=== PATIENT | female | born 1945 | race Caucasian/White ===

== ENCOUNTER 2017-02-23 01:02 | Inpatient (IN) | payer MEDICARE, BC ==
[~2017-02-23] VITALS: Ht 167.6 cm; Wt 47.2 kg
[2017-02-23 04:00] VITALS: BP 98/65
[2017-02-23] MEDS ORDERED: TEMAZEPAM 7.5 MG CAPSULE PO PRN (04:30)
[2017-02-23] MEDS ORDERED: MAGNESIUM HYDROXIDE 30 ML UDC PO PRN (04:30)
[2017-02-23] MEDS ORDERED: LORAZEPAM 0.5 MG TABLET PO PRN (04:30)
[2017-02-23] MEDS ORDERED: MAG HYDROX/AL HYDROX/SIMETH 30 ML UDC PO PRN (04:30)
--- NOTE | 2017-02-23 05:15 | NUR ---
Admission Note: Pt was ROSELYN Boo from [facility] on a 5150 legal hold for being Gravely disable. A/Ox4. On a face to face interview pt reported being exhausted b/c she had been awake most of the night due to her transfer. She refused to sign admission papers & refused initial skin assessment check. She did state that she had "emotional pain". She was reportedly given Trazodone, Seroquel, & Tylenol at [facility] last night. Pt requested to be left alone so she could sleep.
[2017-02-23] MEDS ORDERED: BUSP10TA3 PO (05:42)
[2017-02-23] MEDS ORDERED: FOLI1TAB16 PO (05:42)
[2017-02-23] MEDS ORDERED: TRAZ-147 PO (05:42)
[2017-02-23] MEDS ORDERED: CHOL100040 PO (05:42)
[2017-02-23] MEDS ORDERED: IMAT100T9 PO (05:42)
[2017-02-23] MEDS ORDERED: ESOM20CA PO (05:42)
[2017-02-23] MEDS ORDERED: DOCU-170 PO (05:42)
[2017-02-23] MEDS ORDERED: VIT1TABL85 PO (05:42)
[2017-02-23 08:06] VITALS: BP 116/73
[2017-02-23] MEDS: PANTOPRAZOLE 40 MG TABLET.DR PO SCH (08:33)
[2017-02-23] MEDS: DOCUSATE SODIUM 100 MG CAPSULE PO SCH ×2 (08:34→18:14)
[2017-02-23] MEDS: FOLIC ACID 1 MG TABLET PO SCH (08:34)
[2017-02-23] MEDS: VITAMIN B COMP W-C 1 TAB TABLET PO SCH (08:35)
[2017-02-23] MEDS: CHOLECALCIFEROL 1,000 UNIT TABLET (VIT D3) PO SCH (08:36)
[2017-02-23] MEDS: QUETIAPINE FUMARATE 25 MG TABLET PO SCH ×2 (13:08→18:14)
[2017-02-23 16:00] VITALS: BP 100/69
--- NOTE | 2017-02-23 16:00 | NUR ---
[id number]: PT'S CAME TO VISIT PT OFF VISITING HOURS. EXPLAINED VISITING HOURS TO . PLACED PT'S CONTACT INFORMATION ON THE COMPUTER SYSTEM BY CALLING ADMITTING AND PRINTED NEW FACE SHEETS WITH 'S INFORMATION. PLACED A COPY POWER OF FILM SOUND ENGINEER ON THE CHART. PROVIDED WITH NURSE STATION PHONE NUMBERS AND EXPLANATION OF POLICY AND PROCEDURES. AFTER VISITING FOR 1 1/2 HOURS ADVISE IT WAS TIME TO LEAVE THE UNIT. CHARGE NURSE IS AWARE.
[2017-02-23] MEDS: BOOST PLUS FOOD-CHOCLATE 237 ML BOX PO SCH (17:10)
[2017-02-23] MEDS: busPIRone 5 MG TABLET PO SCH (18:15)
[2017-02-23 19:58] VITALS: BP 107/70
[2017-02-23] MEDS ORDERED: QUETIAPINE FUMARATE 100 MG TABLET PO SCH (20:00)
--- NOTE | 2017-02-23 20:26 | NUR ---
RN GPS NOTES PT. REFUESD SKIN ASSESSMENT, ENCOURAGED FOR SKIN ASSESSMENT,STILL REFUSED / PT. STATED MY SKIN IS CLEAR.
--- NOTE | 2017-02-24 05:48 | NUR ---
RN GPS NOTES PT. REFUESD TO PROVIDE URINE SPECIMEN , ENCOURAGED X3 EXPLAINED RISKS AND BENEFITS STILL REFUSED.
--- NOTE | 2017-02-24 06:59 | NUR ---
RN GPS NOTES PT. REFUESD TO PROVIDE URINE SPECIMEN , ENCOURAGED X3 EXPLAINED RISKS AND BENEFITS STILL REFUSED. ENDORSE TO NEXT SHIFT FOR CONTINUITY OF CARE
--- NOTE | 2017-02-24 08:00 | NUR ---
GPS/RN PATIENT REFUSED VITAL SIGNS X 3, EXPLAINED RISKS AND BENEFITS, CONTINUES TO REFUSE. WILL CONTINUE TO ENCOURAGE TO COMPLY WITH REGIMEN.
[2017-02-24] MEDS: VITAMIN B COMP W-C 1 TAB TABLET PO SCH (08:23)
[2017-02-24] MEDS: FOLIC ACID 1 MG TABLET PO SCH (08:24)
[2017-02-24] MEDS: QUETIAPINE FUMARATE 25 MG TABLET PO SCH ×3 (08:24→17:06)
[2017-02-24] MEDS: PANTOPRAZOLE 40 MG TABLET.DR PO SCH (08:24)
[2017-02-24] MEDS: DOCUSATE SODIUM 100 MG CAPSULE PO SCH ×2 (08:24→17:00)
[2017-02-24] MEDS: CHOLECALCIFEROL 1,000 UNIT TABLET (VIT D3) PO SCH (09:00)
[2017-02-24] MEDS: ACETAMINOPHEN 325 MG TABLET PO PRN ×2 (09:02→19:23)
--- NOTE | 2017-02-24 09:02 | NUR ---
RN GPS NOTES PT. REPORTS HEADACHE , REQUESTED TYLENOL, ADMINISTERED TYLENOL PO ORDERED, PER PATIENT REQUEST. WILL CONTINUE TO MONITOR.
[2017-02-24] MEDS: busPIRone 5 MG TABLET PO SCH ×3 (09:03→17:06)
[2017-02-24] MEDS: BOOST PLUS FOOD-CHOCLATE 237 ML BOX PO SCH ×3 (09:27→17:51)
--- NOTE | 2017-02-24 10:30 | NUR ---
GPS/RN PATIENT REFUSED SKIN ASSESSMENT X 3, STATED" LEAVE ME ALONE" EXPLAINED RISKS AND BENEFITS, WILL CONTINUE TO ENCOURAGE TO ALLOW STAFF TO ASSESS SKIN INTEGRITY.
--- NOTE | 2017-02-24 11:54 | NUR ---
GPS/RN PATIENT REFUSED MRSA SWAB X 3, EXPLAINED RISKS AND BENEFITS, CONTINUES TO REFUSE. WILL CONTINUE TO ENCOURAGE TO COMPLY WITH REGIMEN AND TREATMENTS.
--- NOTE | 2017-02-24 11:57 | NUR ---
GPS/RN PATIENT REFUSED TO PROVIDE URINE SPECIMEN X 3, EXPLAINED RISKS AND BENEFITS, CONTINUES TO REFUSE. WILL CONTINUE TO ENCOURAGE TO COMPLY WITH REGIMEN AND TREATMENTS.
[2017-02-24] MEDS ORDERED: QUETIAPINE FUMARATE 25 MG TABLET PO SCH (13:00)
[2017-02-24] MEDS ORDERED: QUETIAPINE FUMARATE 25 MG TABLET PO ONE (13:00)
[2017-02-24 16:00] VITALS: BP 121/78
[2017-02-24] MEDS: QUETIAPINE FUMARATE 100 MG TABLET PO SCH (20:35)
[2017-02-24 20:46] VITALS: BP 97/69
--- NOTE | 2017-02-25 06:33 | NUR ---
GPS/RN PATIENT REFUSED TO PROVIDE URINE SPECIMEN X 3, EXPLAINED RISKS AND BENEFITS, CONTINUES TO REFUSE. WILL CONTINUE TO ENCOURAGE TO COMPLY WITH REGIMEN AND TREATMENTS.
--- NOTE | 2017-02-25 06:34 | NUR ---
GPS/RN PATIENT REFUSED TO PROVIDE URINE SPECIMEN X 3, EXPLAINED RISKS AND BENEFITS, CONTINUES TO REFUSE. WILL CONTINUE TO ENCOURAGE TO COMPLY WITH MD REGIMEN .
[2017-02-25] MEDS: PANTOPRAZOLE 40 MG TABLET.DR PO SCH (07:30)
--- NOTE | 2017-02-25 08:00 | NUR ---
GPS/RN PATIENT REFUSED VITALS X3, BY RN AND RN ENDOCRINOLOGY, EXPLAINED RISKS AND BENEFITS, RN BROUGHT IN SMALL CUFF REQUESTED BY PATIENT BUT SHE CONTINUES TO REFUSE. WILL CONTINUE TO ENCOURAGE TO COMPLY WITH REGIMEN.
[2017-02-25] MEDS: BOOST PLUS FOOD-CHOCLATE 237 ML BOX PO SCH ×3 (09:00→17:00)
[2017-02-25] MEDS: QUETIAPINE FUMARATE 25 MG TABLET PO SCH ×3 (09:00→17:00)
[2017-02-25] MEDS: busPIRone 5 MG TABLET PO SCH ×3 (09:00→17:00)
[2017-02-25] MEDS: FOLIC ACID 1 MG TABLET PO SCH (09:00)
[2017-02-25] MEDS: DOCUSATE SODIUM 100 MG CAPSULE PO SCH ×2 (09:00→17:00)
[2017-02-25] MEDS: CHOLECALCIFEROL 1,000 UNIT TABLET (VIT D3) PO SCH (09:00)
[2017-02-25] MEDS: VITAMIN B COMP W-C 1 TAB TABLET PO SCH (09:00)
--- NOTE | 2017-02-25 09:00 | NUR ---
GPS/RN PATIENT REFUSED A.M. MEDICATION X 3, EXPLAINED RISKS AND BENEFITS, STATED, IM NOT TAKING ANY MEDICATION BECAUSE THERE ARE NO REAL DOCTOR;S HERE". WILL CONTINUE TO ENCOURAGE TO COMPLY WITH MD REGIMEN.
--- NOTE | 2017-02-25 09:14 | NUR ---
RN-CO: Patient refused lab works, encouraged her several times but firmly refused. We explained the risks and benefits but still refused.
--- NOTE | 2017-02-25 13:00 | NUR ---
GPS/RN PATIENT REFUSED ALL 1300 MEDICATION X 3, EXPLAINED RISKS AND BENEFITS, WILL CONTINUE TO ENCOURAGE TO COMPLY WITH MD REGIMEN.
--- NOTE | 2017-02-25 14:01 | NUR ---
hoe worker received a call from patient's Shola Murphy who stated that he wanted her to be discharged and he wanted to take her to [facility]. ([phone]) as he stated they have a bed available. hoe worker will follow-up.
--- NOTE | 2017-02-25 14:05 | NUR ---
extrusion utility worker spoke to Annabel from [facility] ([phone]) who stated that she informed Shola that the only way patient can be admitted is if she is discharged from [facility] and taken to the [facility] ER which she would have to be reevaluated. Per Annabel, there was no guarantee patient would be admitted.
--- NOTE | 2017-02-25 14:11 | NUR ---
loft worker apprentice informed assigned psychiatrist Dr. León. Per Dr. León, she will not discharge today and will follow-up with patient's .
--- NOTE | 2017-02-25 14:13 | NUR ---
construction pit worker spoke to patient's Shola Murphy and informed him that assigned psychiatrist Dr. León would not be discharging patient today. Patient's was unhappy and stated that he would like to speak to Dr. León. construction pit worker will follow-up.
--- NOTE | 2017-02-25 15:31 | NUR ---
GPS/RN PATIENT'S IS ON UNIT, PATIENT IS EXTREMELY AGITATED, GRABBING BADGE OF CHARGE NURSE, ASKING "WHAT IS YOUR POSITION" GRABBING AND PINCHING AND BEING VERBALLY ABUSIVE WITH STAFF. STATED" THIS IS A CRAPPY PLACE, I WANT TO TAKE MY TO A PROPER PLACE.
--- NOTE | 2017-02-25 17:00 | NUR ---
GPS/RN PATIENT REFUSED ALL 1700 MEDICATION X 3, STATED "IM NOT TAKING ANY MEDICATION" EXPLAINED RISKS AND BENEFITS, CONTINUES TO REFUSE, WILL CONTINUE TO ENCOURAGE TO COMPLY WITH MD REGIMEN.
--- NOTE | 2017-02-25 17:38 | NUR ---
GPS/RN PATIENT REFUSED ALL MEALS DURING SHIFT,EXPLAINED RISKS AND BENEFITS, WILL CONTINUE TO ENCOURAGE TO CONSUME ADEQUATE AMOUNTS AT MEALTIME AND ENCOURAGED SNACKS IN BETWEEN.
--- NOTE | 2017-02-25 18:35 | NUR ---
GPS/RN PATIENT REFUSED TO PROVIDE INFORMATION REGRADING OUTPUT DURING SHIFT.
[2017-02-25] MEDS: QUETIAPINE FUMARATE 100 MG TABLET PO SCH (20:00)
--- NOTE | 2017-02-25 20:29 | NUR ---
PATIENT REFUSED VITALS SIGNS, REFUSED SEROQUEL, EXPLAINED BENEFITS OF MEDICATION. PATIENT STILL REFUSED. PATIENT IN BED. PATIENT WANTS TO BE LEFT ALONE. WILL CONTINUE TO MONITOR.
[2017-02-26] MEDS: PANTOPRAZOLE 40 MG TABLET.DR PO SCH (07:30)
--- NOTE | 2017-02-26 07:30 | NUR ---
COMMUNITY RELATIONS POLICE LIEUTENANT-NOTES - PATIENT REFUSED PROTONIX,DESPITE EXPLANATIONS OF RISK AND BENEFITS.PATIENT IS VERY MANIPULATIVE AND ARGUMENTATIVE. OFFERED X3.
[2017-02-26] MEDS: QUETIAPINE FUMARATE 25 MG TABLET PO SCH ×3 (09:00→17:00)
[2017-02-26] MEDS: DOCUSATE SODIUM 100 MG CAPSULE PO SCH ×2 (09:00→17:00)
[2017-02-26] MEDS: busPIRone 5 MG TABLET PO SCH ×3 (09:00→17:00)
[2017-02-26] MEDS: BOOST PLUS FOOD-CHOCLATE 237 ML BOX PO SCH ×3 (09:00→17:00)
[2017-02-26] MEDS: CHOLECALCIFEROL 1,000 UNIT TABLET (VIT D3) PO SCH (09:00)
[2017-02-26] MEDS: FOLIC ACID 1 MG TABLET PO SCH (09:00)
[2017-02-26] MEDS: VITAMIN B COMP W-C 1 TAB TABLET PO SCH (09:00)
--- NOTE | 2017-02-26 10:09 | NUR ---
TELEPHONE SOLICITOR-NOTES PATIENT REFUSED ALL 0900AM MEDICATIONS DESPITE EXPLANATION OF RISK AND BENEFITS. PATIENT STATED " I DON'T TRUST NURSES HERE TO GIVE MEDICATIONS".OFFERED X3.
--- NOTE | 2017-02-26 11:19 | NUR ---
Initial Discharge Plan: Patient resides [place] [address] [place] [address]. Pts family is unable to care for her and her has attempted hiring in-home aids. SW consultant intern spoke with the patients Shola and completed psycho social questions as pt. refused to answer them. SW consultant intern advised to follow up with assigned social work faculty member Millie regarding any questions or concerns. SW to communicate with regarding most appropriate discharge plan. SW to help form a safe and proper discharge.
--- NOTE | 2017-02-26 11:42 | NUR ---
LABEL STITCHER-NOTES PATIENT REFUSED LAB DRAW AND REFUSED TO GIVE URINE SPECIMEN.EXPLAINED RISK AND BENEFITS BUT PATIENT GETS ARGUMENTATIVE AND ANGRY. ATTEMPTED X3
--- NOTE | 2017-02-26 13:46 | NUR ---
PLYWOOD AND VENEER REPAIRER-NOTES PATIENT REFUSED ALL 1300 PM MEDICATIONS DESPITE EXPLANATION OF RISK AND BENEFITS. OFFERED X3.
[2017-02-26 16:55] VITALS: BP 125/81
--- NOTE | 2017-02-26 17:19 | NUR ---
PERSONAL CARE AIDE-NOTES PATIENT STILL REFUSING ALL 1700 PM MEDICATIONS DESPITE EXPLANATION OF RISK AND BENEFITS. OFFERED X3. DR. CORONEL AND DR. JOHNSON AWARE
--- NOTE | 2017-02-26 18:30 | NUR ---
AUXILIARY EQUIPMENT OPERATOR-NOTES RECEIVED T.O ORDER FROM DR. ELIZABETH VANG TO DISCHARGE PATIENT IN THE MEDICAL FLOOR FOR FURTHER TREATMENT WITH ORDERS OF D5 NS 1L X1 AND ROCEPHIN 1GM DAILY X7 DAYS.NOTED AND CARRIED OUT. ENDORSE TO SILVINO CAPPS FOR THE DISCHARGE PROCESS.
--- NOTE | 2017-02-26 18:57 | NUR ---
RN-CO: DR León ordered to discharge patient to medical floor (room 200) for further evaluation. Patient has been refusing her medications , treatments, laboratory works and each meals. She refused to eat in the unit. Dr. León communicated with Dr Nat Ivey regarding the situation, and they agreed to discharge patient to medical floor for hydration and further evaluation. Dante Durand () was notified of the transfer and agreed. RN display fabrication supervisor gave the room number. Endorsed to next shift.
--- NOTE | 2017-02-26 19:30 | NUR ---
GPS RN NOTE, RECEIVED PATIENT AWAKE AND IN BED, NO S/S OR COMPLAINTS OF PAIN AT THIS TIME. PATIENT IS DISPLAYING NO S/S OF APPARENT DISTRESS AT THIS TIME. PATIENT BREATHING IS UNLABORED WITH EQUAL RISE AND FALL OF THE CHEST. PATIENT HAS A ONE TO ONE SITTER FOR FALL. PATIENT IS ALERT AND ORIENTED X 3 ON ROOM AIR WITH A SPO2 OF 95%. PATIENT IS AMBULATORY WITH ASSISTANCE, COMPLIANT MEDICATION, CONFUSED, DISORGANIZED, AND NEEDS REORIENTATION. PATIENT DENIES SUICIDE IDEATIONS AND HOMICIDAL IDEATIONS AT THIS TIME. PATIENT EDUCATED ON THE USE OF THE CALL MOORE. PATIENT BED SIDE RAILS UP X2 FOR SAFETY, BED IS LOCKED AND LOW, AND I WILL CONTINUE TO MONITOR AND MAINTAIN SAFETY Q15MIN WITH THE HELP OF STAFF.
[2017-02-26 20:13] VITALS: BP 124/48
[2017-02-26] MEDS: QUETIAPINE FUMARATE 100 MG TABLET PO SCH (20:56)
--- NOTE | 2017-02-26 21:01 | NUR ---
GPS RN NOTE, PATIENT HAS A COMPLAINT OF NOT BEING ABLE TO SLEEP AND IS REQUESTING RESTORIL. PATIENT VITAL SIGNS ARE STABLE. GAVE RESTORIL 7.5 MG PO HS ORDERED. WILL REASSESS FOR INSOMNIA AND I WILL CONTINUE TO MONITOR THIS PATIENT.
--- NOTE | 2017-02-26 21:15 | NUR ---
GPS RN NOTE, WITH NEW ORDER TO TRANSFER PATIENT TO ROOM MED SURG 2 FOR DEHYDRATION. PSYCHIATRIST MADE AWARE AND ORDERED TO CONTINUE MEDS AND HOLD. PSYCHIATRIST AGREES WITH TRANSFER. PATIENT IS STABLE FOR TRANSFER AND HAS A ONE TO ONE SITTER THAT WILL BE GOING WITH HER. PATIENT REFUSED SKIN ASSESSMENT. PATIENT UNABLE TO SIGN PAPERWORK ALTHOUGH WITNESS/COSIGNER WAS PRESENT. PATIENT BELONGING LEFT WITH PATIENT. MEDICATIONS WERE RECONCILED WITH PSYCH AND MEDICAL MDS. PATIENT TRANSFERRED TO ROOM 200 IN A WHEEL CHAIR WITH SITTER PRESENT. REPORT GIVEN TO ED IN MED/SURG 2 FOR CONTINUATION OF CARE.
== END 2017-02-26 21:21 | disposition short-term general hospital (02) | DRG 885 ==
LOC: GPS 03:26
PROVIDERS: ADMIT Psychiatry & Neurology Psychosomatic Medicine; ATTEND Nurse Practitioner Acute Care
DX: F33.3 Major depressive disorder, recurrent, severe with psychotic symptoms (principal); G93.40 Encephalopathy, unspecified; F03.90 Unspecified dementia, unspecified severity, without behavioral disturbance, psychotic disturbance, mood disturbance, and anxiety; N39.0 Urinary tract infection, site not specified; F23 Brief psychotic disorder; F41.9 Anxiety disorder, unspecified; I10 Essential (primary) hypertension; I25.10 Atherosclerotic heart disease of native coronary artery without angina pectoris; Z79.899 Other long term (current) drug therapy; Z73.6 Limitation of activities due to disability

== ENCOUNTER 2017-02-26 21:49 | Inpatient (IN) | payer MEDICARE, BC ==
[~2017-02-26] VITALS: Ht 167.6 cm; Wt 47.2 kg
[~2017-02-26 21:49] MED LIST: CHOL100040 PO; DOCU-170 PO; ESOM20CA PO; FOLI1TAB16 PO; VIT1TABL85 PO
[2017-02-26 22:00] VITALS: BP 76/56
--- NOTE | 2017-02-26 22:00 | NUR ---
ADMITTING NOTES PATIENT WAS DISCHARGE FROM GPS AND ADMITTED TO THE FLOOR FOR DEHYDRATION. PATIENT IS ALERT AND ORIENTED X3. NO S/S OF SOB OR ANY DISCOMFORT NOTED. PATIENT IS REFUSING FULL SKIN BODY ASSESSMENT. SITTER AT BEDSIDE. WILL CONTINUE TO MONITOR PATIENT.
[2017-02-26] MEDS ORDERED: IV D5/0.45 NACL 1,000 ML IV ONE (22:30)
[2017-02-26 23:00] VITALS: BP 96/54
[2017-02-26] MEDS ORDERED: TEMAZEPAM 7.5 MG CAPSULE PO PRN (23:00)
[2017-02-26] MEDS ORDERED: MAG HYDROX/AL HYDROX/SIMETH 30 ML UDC PO PRN (23:30)
[2017-02-26] MEDS ORDERED: MAGNESIUM HYDROXIDE 30 ML UDC PO PRN (23:30)
[2017-02-26] MEDS ORDERED: ACETAMINOPHEN 325 MG TABLET PO PRN (23:30)
[2017-02-27] MEDS ORDERED: Z GUARD REMEDY 2 OZ OINT TP PRN (02:00)
[2017-02-27] MEDS ORDERED: ZOLPIDEM TARTRATE 5 MG TABLET PO PRN (02:00)
[2017-02-27] MEDS ORDERED: ONDANSETRON HCL/PF 4 MG/2 ML VIAL IVP PRN (02:00)
[2017-02-27] MEDS ORDERED: HYDROCODONE/APAP 5/325MG 1 EACH TABLET PO PRN (02:00)
[2017-02-27] MEDS ORDERED: MAGNESIUM HYDROXIDE 30 ML UDC PO PRN (02:00)
[2017-02-27] MEDS ORDERED: ACETAMINOPHEN 325 MG TABLET PO PRN (02:00)
[2017-02-27 02:45] LABS: BASOPHILS % (AUTO) 0.2 % (0.0-2.0); EOSINOPHILS % (AUTO) 0.6 % (0.0-6.0); HEMATOCRIT 34 % (33-45); HEMOGLOBIN 11.5 g/dL (11.5-14.8); LYMPHOCYTES # (AUTO) 1.3 /CMM (0.8-4.8); LYMPHOCYTES % (AUTO) 22.9 % (20.0-44.0); MEAN CORPUSCULAR HEMOGLOBIN 32 PG (26.0-33.0); MEAN CORPUSCULAR HGB CONC 34 g/dl (31.0-36.0); MEAN CORPUSCULAR VOLUME 94 fL (82-100); MONOCYTES # (AUTO) 0.5 /CMM (0.1-1.30); MONOCYTES % (AUTO) 8.4 % (2.0-12.0); NEUTROPHILS # (AUTO) 3.8 /CMM (1.8-8.9); NEUTROPHILS % (AUTO) 67.9 % (43.0-81.0); PLATELET COUNT (AUTO) 224 /CMM (150-450); RDW COEFFICIENT OF VARIATION 13.7 (11.5-15.0); RED BLOOD CELL COUNT(AUTO) 3.64 MIL/uL (4.0-5.2); WHITE BLOOD COUNT (AUTO) 5.6 K/uL (4.3-11.0)
[2017-02-27 02:49] LABS: ALANINE AMINOTRANSFERASE 24 U/L (12-78); ALBUMIN 3.4 g/dL (3.4-5.0); ALKALINE PHOSPHATASE 47 U/L (46-116); ASPARTATE AMINOTRANSFERASE 23 U/L (15-37); BILIRUBIN,TOTAL 0.3 mg/dL (0.2-1.0); CALCIUM, SERUM 8.5 mg/dL (8.5-10.1); CARBON DIOXIDE 33 mmol/L (21-32); CHLORIDE 100 mmol/L (98-107); CREATININE 0.9 mg/dL (0.6-1.3); GLUCOSE 122 mg/dL (74-106); MAGNESIUM 1.9 mg/dL (1.8-2.4); PHOSPHORUS 3.7 mg/dL (2.5-4.9); POTASSIUM 4.2 mmol/L (3.5-5.1); SODIUM SERUM 135 mmol/L (136-145); TOTAL PROTEIN, SERUM 5.7 g/dL (6.4-8.2); UREA NITROGEN, BLOOD 25 mg/dL (7-18)
[2017-02-27] MEDS ORDERED: MAG HYDROX/AL HYDROX/SIMETH 30 ML UDC ONE (06:15)
[2017-02-27] MEDS: MAG HYDROX/AL HYDROX/SIMETH 30 ML UDC PO PRN (06:20)
[2017-02-27 06:24] VITALS: BP 124/75
[2017-02-27] MEDS: PANTOPRAZOLE 40 MG TABLET.DR PO SCH (07:53)
[2017-02-27 08:00] VITALS: BP 123/71
--- NOTE | 2017-02-27 08:00 | NUR ---
MS 2 RN AM NOTES RECEIVED PATIENT ALERT AND ORIENTED X3. NO S/S OF SOB OR ANY DISCOMFORT NOTED. PATIENT REFUSED FULL SKIN BODY ASSESSMENT INSPITE OF EXPLANATION. SITTER AT BEDSIDE. WILL CONTINUE TO MONITOR PATIENT.
[2017-02-27] MEDS: VITAMIN B COMP W-C 1 TAB TABLET PO SCH (08:38)
[2017-02-27] MEDS: DOCUSATE SODIUM 100 MG CAPSULE PO SCH ×2 (08:38→16:56)
[2017-02-27] MEDS: QUETIAPINE FUMARATE 25 MG TABLET PO SCH ×3 (08:39→16:56)
[2017-02-27] MEDS: busPIRone 5 MG TABLET PO SCH ×3 (08:39→16:56)
[2017-02-27] MEDS: FOLIC ACID 1 MG TABLET PO SCH (08:39)
[2017-02-27] MEDS: CHOLECALCIFEROL 1,000 UNIT TABLET (VIT D3) PO SCH (08:44)
[2017-02-27] MEDS: LORAZEPAM 0.5 MG TABLET PO PRN (08:47)
[2017-02-27] MEDS ORDERED: CALCIUM CARB PO SCH (09:00)
[2017-02-27] MEDS ORDERED: [UNRECOGNIZED DRUG - OTHER] PO SCH (09:00)
[2017-02-27] MEDS ORDERED: FOLIC ACID 1 MG TABLET PO SCH (09:00)
[2017-02-27] MEDS ORDERED: VIT B COMP PO SCH (09:00)
[2017-02-27] MEDS ORDERED: CHOLECALCIFEROL 1,000 UNIT TABLET (VIT D3) PO SCH (09:00)
[2017-02-27] MEDS ORDERED: DOCUSATE SODIUM 100 MG CAPSULE PO SCH (09:00)
--- NOTE | 2017-02-27 09:00 | NUR ---
PT TOOK ALL HER P.O. ONE BY ONE.ATE 25% BREAKFAST.ENCOURAGED INCREASE ORAL INTAKE.PT VERBALIZED UNDERSTANDING OF INSTRUCTIONS.PT VERBALIZED THAT SHE HAD GASTRECTOMY AND CAN'T TAKE LARGE AMOUNT OF FOOD AND LIQUIDS.WILL CONTINUE TO MONITOR.WITH 1;1 SITTER AT BEDSIDE.
[2017-02-27] MEDS: BOOST PLUS FOOD-CHOCLATE 237 ML BOX PO SCH ×3 (09:19→16:56)
[2017-02-27] MEDS: CEFTRIAXONE 1 G in IV D5W 50 ML IV SCH (09:20)
--- NOTE | 2017-02-27 10:00 | NUR ---
BODY CHECK DONE WITH SKIN INTACT.
--- NOTE | 2017-02-27 11:52 | NUR ---
HEARING PROCEDURE COMPLETED WITH A ENGINEERING AIDE AND PT REQUESTED SECOND HEARING FOR FRIDAY.
[2017-02-27] MEDS: IV D5/0.45 NACL 1,000 ML IV PRN (15:34)
[2017-02-27 16:00] VITALS: BP 90/58
--- NOTE | 2017-02-27 16:59 | NUR ---
PT SLEEPING COMFORTABLY BUT AROUSABLE.PT REFUSED BOOST QUESTIONING IT'S SODIUM CONTENT.DENIES ANY DISCOMFORT.COMPLIANT WITH MEDS AND TX.ENCOURAGED FLUIDS AND FOOD INTAKE.PT KEEPS VERBALIZING THAT SHE HAD GASTRECTOMY PROCEDURE DONE WHICH MAKES HER EAT LESS FOOD INTAKE.
--- NOTE | 2017-02-27 19:30 | NUR ---
MS RN NOTES RECEIVED ON BED ON HIGH FOWLERS POSITION,BREATHING NORMAL,IVF INFUSING VIA IV PUMP.SITE PATENT ON RIGHT FOREARM.ON 5150 HOLD,SITTER AT BEDSIDE.CALL LIGHT IN REACH,NEEDS ANTICIPATED.
[2017-02-27 20:00] VITALS: BP 96/67
--- NOTE | 2017-02-27 20:00 | NUR ---
Patient was in [facility] unit on 72hr hold with hx of psychosis and severe depression and transferred to acute medical unit due to dehydration, poor intake.Patient resides with her Shola at [id number] [place] [id number] Her pcp is Dr Tiffanie Louis [phone].PT eval pending. Plan to dc back to [facility] once medically cleared. Addendum: 02/27/17 at 2000 by LONG CONTE RN Amended: Links added.
[2017-02-27 20:17] VITALS: BP 96/67
--- NOTE | 2017-02-27 21:44 | NUR ---
MS RN NOTES C/O INSOMNIA,RESTORIL 7.5MG PO GIVEN PER PATIENT REQUEST
[2017-02-27] MEDS ORDERED: QUETIAPINE FUMARATE 100 MG TABLET PO SCH (22:00)
--- NOTE | 2017-02-28 | NUR ---
MS RN NOTES SLEEPING AT THIS TIME,SITTER AT BEDSIDE
[2017-02-28] MEDS: IV D5/0.45 NACL 1,000 ML IV PRN ×2 (06:13→18:05)
--- NOTE | 2017-02-28 06:18 | NUR ---
MS RN NOTES SLEPT 7 HOURS AT NIGHT WITH PHARMACOLOGICAL INTERVENTION.IVF IN PROGRESS.BRP FOR B/B.SITTER AT BEDSIDE.WILL ENDORSE TO DAY NURSE FOR TIFFANIE.
[2017-02-28 08:00] VITALS: BP 125/75
--- NOTE | 2017-02-28 08:00 | NUR ---
MS 2 RN AM NOTES RECEIVED PATIENT ALERT,MANIPULATIVE AND CONFUSED. NO S/S OF SOB OR ANY DISCOMFORT NOTED.PT IS SO RESTLESS AND ANXIOUS.ATIVAN 0.5 MG PO GIVEN.PT IS QUESTIONING HER IVF SAYING SHE WANTS 1/2 BAG OF D5 1/2 NS 1 LITER.EXPLAINED THE REASON WHY SHE HAS IVF FOR HYDRATION DUE TO HER DEHYDRATION DX AND THAT SHE NEEDS TO DRINK LOTS OF FLUID AND INCREASE HER ORAL INTAKE FOR THE IVF TO BE DISCONTINUED.ALSO EXPLAINED HER ANTIBIOTIC IV FOR HER UTI.PT DENIES HAVING UTI.EXPLAINED THE BENEFITS,RISKS AND CONSEQUENCES IF SHE REFUSED ALL THE MEDS AND TX.PT VERBALIZED THAT SHE HAS GASTRECTOMY DONE WHICH IS THE REASON WHY SHE CAN'T INCREASE HER INTAKE.PT REFUSED HER BOOST QUESTIONING ITS HIGH SODIUM CONTENT.SITTER AT BEDSIDE. WILL CONTINUE TO MONITOR PATIENT.
--- NOTE | 2017-02-28 08:10 | NUR ---
PT REFUSED BLOOD DRAW FOR AM LAB TESTS INSPITE OF EXPLAINING ITS IMPORTANCE AND CONSEQUENCES.
--- NOTE | 2017-02-28 08:30 | NUR ---
PT WALKED WITH SITTER IN THE HALLWAY-PACING AND RESTLESS.ASKED FOR THE PT'S RIGHTS LIST WHICH WAS PROVIDED BY THE COMPLIANCE MGR.
[2017-02-28] MEDS: DOCUSATE SODIUM 100 MG CAPSULE PO SCH ×2 (08:42→16:59)
[2017-02-28] MEDS: QUETIAPINE FUMARATE 25 MG TABLET PO SCH ×3 (08:42→16:59)
[2017-02-28] MEDS: LORAZEPAM 0.5 MG TABLET PO PRN ×2 (08:42→22:03)
[2017-02-28] MEDS: VITAMIN B COMP W-C 1 TAB TABLET PO SCH (08:42)
[2017-02-28] MEDS: FOLIC ACID 1 MG TABLET PO SCH (08:42)
[2017-02-28] MEDS: busPIRone 5 MG TABLET PO SCH ×3 (08:42→16:58)
[2017-02-28] MEDS: PANTOPRAZOLE 40 MG TABLET.DR PO SCH (08:42)
[2017-02-28] MEDS: CEFTRIAXONE 1 G in IV D5W 50 ML IV SCH (08:43)
[2017-02-28] MEDS: BOOST PLUS FOOD-CHOCLATE 237 ML BOX PO SCH ×3 (08:43→17:02)
[2017-02-28] MEDS: CHOLECALCIFEROL 1,000 UNIT TABLET (VIT D3) PO SCH (08:45)
--- NOTE | 2017-02-28 12:06 | NUR ---
harvest worker fruit attempted to contact patient's Shola to inform him of patient's Writ of habeas corpus hearing scheduled fro 03/03/17, he was unavailable. harvest worker fruit left him a detailed voicemail with contact information.
[2017-02-28] MEDS ORDERED: QUETIAPINE FUMARATE 25 MG TABLET PO PRN (15:30)
--- NOTE | 2017-02-28 15:31 | NUR ---
DR CORONEL CALLED SAYING THE /50 HOLD WILL BE DC'D AFTER CHECKING THE PT.WILL CONTINUE 1:1 SITTER DUE TO PT'S RESTLESSNESS.
[2017-02-28 16:00] VITALS: BP 100/70
--- NOTE | 2017-02-28 18:48 | NUR ---
PT SLEEPING COMFORTABLY BUT AROUSABLE REFUSING DINNER.DENIES PAIN OR DISTRESS.1:1 SITTER AT BEDSIDE.
[2017-02-28 20:00] VITALS: BP_SYST 103; BP_SYST 93; BP_DIAS 69; BP_DIAS 71
--- NOTE | 2017-02-28 20:00 | NUR ---
RN NOTES RECEIVED PATIENT IN BED, ASLEEP, RESPIRATION EVEN AND UNLABORED, NO DISTRESS, TOLERATING ROOM AIR, SPO2 97%, RIGHT AC PERIPHERAL LINE IS PATENT AND INFUSING WELL WITH D51/2 NS AT 75 CC/HR. PER ENDORSEMENT, HAS POOR APPETITE. SAFETY PRECAUTIONS, PATIENT AMBULATORY, SITTER AT THE BEDSIDE. CALL LIGHT WITHIN REACH
--- NOTE | 2017-02-28 21:25 | NUR ---
RN NOTES PATIENT AWAKE AND ALERT, NO SOB, NO DISTRESS, ASKING FOR PM MEDICATIONS, EXPLAINED TO PATIENT SCHEDULED MEDICATIONS AT NIGHT, WITH FORGETFULNESS. AFTER 15 MINUTES, ASKING ANOTHER NURSE REGARDING PM MEDICATIONS. ATE LATE DINNER OF 75%, ASKED FOR EGG SANDWICH. EXCESSIVE TALKING NOTED. AMBULATES IN THE HALLWAY WITH SITTER. KEPT SAFE AND COMFORTABLE, CALL LIGHT WITHIN REACH.
[2017-02-28] MEDS: QUETIAPINE FUMARATE 100 MG TABLET PO SCH (22:03)
--- NOTE | 2017-03-01 02:54 | NUR ---
RN NOTES PATIENT ASLEEP, GIVEN ATIVAN FOR RESTLESSNESS, ATIVAN EFFECTIVE, SITTER AT THE BEDSIDE. WILL CONTINUE TO MONITOR.
[2017-03-01] MEDS: IV D5/0.45 NACL 1,000 ML IV PRN (05:29)
[2017-03-01 06:28] LABS: BASOPHILS % (AUTO) 0.4 % (0.0-2.0); EOSINOPHILS # (AUTO) 0.1 /CMM (0.0-0.7); EOSINOPHILS % (AUTO) 2.9 % (0.0-6.0); HEMATOCRIT 34 % (33-45); HEMOGLOBIN 11.4 g/dL (11.5-14.8); LYMPHOCYTES # (AUTO) 1.4 /CMM (0.8-4.8); LYMPHOCYTES % (AUTO) 29.2 % (20.0-44.0); MEAN CORPUSCULAR HEMOGLOBIN 32 PG (26.0-33.0); MEAN CORPUSCULAR HGB CONC 34 g/dl (31.0-36.0); MEAN CORPUSCULAR VOLUME 95 fL (82-100); MONOCYTES # (AUTO) 0.4 /CMM (0.1-1.30); MONOCYTES % (AUTO) 9.4 % (2.0-12.0); NEUTROPHILS # (AUTO) 2.7 /CMM (1.8-8.9); NEUTROPHILS % (AUTO) 58.1 % (43.0-81.0); PLATELET COUNT (AUTO) 171 /CMM (150-450); RDW COEFFICIENT OF VARIATION 13.7 (11.5-15.0); RED BLOOD CELL COUNT(AUTO) 3.57 MIL/uL (4.0-5.2); WHITE BLOOD COUNT (AUTO) 4.6 K/uL (4.3-11.0)
[2017-03-01 06:35] LABS: CALCIUM, SERUM 7.9 mg/dL (8.5-10.1); CARBON DIOXIDE 31 mmol/L (21-32); CHLORIDE 104 mmol/L (98-107); CREATININE 0.7 mg/dL (0.6-1.3); GLUCOSE 88 mg/dL (74-106); POTASSIUM 3.8 mmol/L (3.5-5.1); SODIUM SERUM 139 mmol/L (136-145); UREA NITROGEN, BLOOD 14 mg/dL (7-18)
--- NOTE | 2017-03-01 06:40 | NUR ---
RN NOTES PATIENT RESTING COMFORTABLY IN BED, ALERT AND AWAKE, NO SOB, NO DISTRESS, DENIES ANY PAIN AT THIS TIME, RIGHT AC PERIPHERAL LINE IS PATENT AND INFUSING WELL, SLEPT FOR 7 HOURS, COOPERATIVE WITH MEDICATIONS, WITH EPISODE OF AGITATION AT TIMES. AGREED TO BLOOD DRAW WITH ENCOURAGEMENT. ONE ON ONE SITTER AT THE BEDSIDE.CALL LIGHT WITHIN REACH.
--- NOTE | 2017-03-01 07:30 | NUR ---
MS RN AM NOTES PATIENT STANDING UP, ALERT AND AWAKE, CALM, COOPERATIVE, WITH SITTER, ON RA, NO SOB, NO DISTRESS, DENIES ANY PAIN AT THIS TIME, RIGHT AC PERIPHERAL LINE IS PATENT WITH D51/2 NS INFUSING WELL, WITH TENDENCY TO GET EASILY FRUSTRATED AND AGITATED AT TIMES WHEN ENGAGED IN A CONVERSATION. AMBULATES. ON REGULAR DIET. CALL LIGHT WITHIN REACH. WILL CONT TO MONITOR
[2017-03-01 08:00] VITALS: BP 127/83
[2017-03-01] MEDS: DOCUSATE SODIUM 100 MG CAPSULE PO SCH ×2 (08:28→16:54)
[2017-03-01] MEDS: VITAMIN B COMP W-C 1 TAB TABLET PO SCH (08:28)
[2017-03-01] MEDS: CHOLECALCIFEROL 1,000 UNIT TABLET (VIT D3) PO SCH (08:28)
[2017-03-01] MEDS: FOLIC ACID 1 MG TABLET PO SCH (08:28)
[2017-03-01] MEDS: QUETIAPINE FUMARATE 25 MG TABLET PO SCH ×3 (08:29→16:54)
[2017-03-01] MEDS: MULTIVITAMINS,THERAGRAN 1 UDTAB TABLET PO SCH (08:29)
[2017-03-01] MEDS: PANTOPRAZOLE 40 MG TABLET.DR PO SCH (08:29)
[2017-03-01] MEDS: busPIRone 5 MG TABLET PO SCH ×3 (08:29→16:54)
[2017-03-01] MEDS: BOOST PLUS FOOD-CHOCLATE 237 ML BOX PO SCH ×3 (08:31→16:54)
[2017-03-01] MEDS: CEFTRIAXONE 1 G in IV D5W 50 ML IV SCH ×3 (08:32→09:35)
--- NOTE | 2017-03-01 08:32 | NUR ---
MS RN NOTES PATIENT REFUSED ROCEPHIN IV AND IVF. STATED SHE DOES NOT NEED IT AND SHE DOES NOT HAVE ANY INFECTION.
--- NOTE | 2017-03-01 09:36 | NUR ---
MS RN NOTES PATIENT'S IV SITE LEAKING. REFUSE TO HAVE RE INSERTION DESPITE EXPLAINING THE NEDDS, SHE STATED "IT'S RIDICULOUS, MY BP IS LOW AND I HAVE ANEMIA", I EXPLAINED TO HER THAT IV REINSERTION HAS NOTHING TO DO WITH HER ANEMIA AND BP, SHE REPLIED, "LET'S WAIT FOR THE DOCTOR, MAYBE IT WILL NOT LEAK WHEN WE TELL THE DOCTOR".
--- NOTE | 2017-03-01 09:38 | NUR ---
MS RN NOTES PATIENT VERY DEFENSIVE ATTITUDE AND SELF RIGHTEOUS. STATED "DONT BLAME ME FOR SOMETHING THAT I DID NOT DO - REFERRING TO HER IV SITE LEAKING. REASSURANCE AND EXPLAINED TO HER THAT THERE ARE A LOT OF FACTORS WHY IV SITE WOULD LEAK, BUT SHE STILL IS FRUSTRATED AND REFUSES TO LISTEN.
--- NOTE | 2017-03-01 11:29 | NUR ---
MS RN NOTES LABORATORY INFORMED ABOUT URINE SPECIMEN FOR PALLIATIVE NURSE.
[2017-03-01 11:58] LABS: APPEARANCE,URINE CLEAR (CLEAR); BILIRUBIN,URINE NEGATIVE (NEGATIVE); BLOOD, URINE NEGATIVE Ery/uL (NEGATIVE); COLOR,URINE YELLOW (YELLOW); KETONES,URINE NEGATIVE (NEGATIVE); LEUKOCYTE ESTERASE ,URINE NEGATIVE (NEGATIVE); NITRITE, URINE NEGATIVE (NEGATIVE); PROTEIN,URINE NEGATIVE (NEGATIVE); UGLUCOSE NEGATIVE (NEGATIVE); UROBILINOGEN,URINE 0.2 EU/dL (0.2)
--- NOTE | 2017-03-01 12:25 | NUR ---
MS RN NOTE PER AGUILAR MELÉNDEZ TO STOP ROCEPHIN IV AND IVF. ALSO PATIENT REFUSED TO HAVE ANOTHER IV INSERTION.
--- NOTE | 2017-03-01 15:30 | NUR ---
MS RN NOTES SPOKE WITH EARLIER RE PT CLEARED FOR DISCHARGE MEDICALLY AND THAT [address] WAS [address] BY DR. CORONEL. PER WILL CRIMINAL ANALYST AT AROUND [phone]. RECEIVED A CALL FROM SON DAVIE [phone], STATED THAT THER IS NO 24 HOUR CAREGIVER AT HOME AND THAT HIS DAD IS ELDERLY WELL AND WILL NOT BE ABLE TO TAKE CARE OF HER. DARIAN CORREA PLATE GLASS INSTALLER HELPER AND ANY [facility] CASE MANAGEMENT NOTIFIED OF SITUATION. PER DARIAN CORREA, FAMILY NEEDS TO CRIMINAL ANALYST THE PATIENT AND THAT A 24 HOUR CAREGIVER SHOULD BE THERE TO TAKE CARE OF THE PATIENT.
[2017-03-01 16:00] VITALS: BP 122/77
[2017-03-01 18:00] VITALS: BP 122/77
--- NOTE | 2017-03-01 18:47 | NUR ---
MS CAPPS NOTES PER DARIAN CEDEÑO FOR PET TEAM ASSESSMENT. Addendum: 03/01/17 at 1856 by JAYDEN SANTA RN SPOKE WITH IDALMIS FOR PET EVAL. SHE SAID SHE WILL GRACIELA CORREA. I PROVIDED HER HIS PHONE NUMBER. ANY [facility] NOTIFIED.
--- NOTE | 2017-03-01 19:00 | NUR ---
RN NOTES PATIENT IN ROOM, GETTING IV LINE REMOVED. PATIENT IS CALM AND COOPERATIVE, RECEIVED A PHONE CALL FROM SON, THEN PATIENT ACTED UP TELLING SON "THEY'RE HURTING ME. THEY STOPPED TREATING ME." AFTER THE PHONE CALL, PATIENT IS CALM AND COLLECTED AGAIN.
--- NOTE | 2017-03-01 19:07 | NUR ---
MS RN CLOSING NOTES PATIENT RESTING IN BED, REACTED EARLIER WHILE SPEAKING TO SON/, STATING THAT "WE ARE KILLING HER", "SHE IS BEING TAKEN CARE OF" "THAT WE ARE HURTING HER". COLLEAGUE JASWINDER RODRIGUEZ PRESENT AT THE TIME. WITH SITTER, ON RA, NO SOB, NO DISTRESS, DENIES ANY PAIN AT THIS TIME, NO IV, PATIENT REFUSED RE INSERTION, DARIAN CORREA AWARE. GET EASILY FRUSTRATED AND AGITATED AT TIMES WHEN ENGAGED IN A CONVERSATION. AMBULATES. ON REGULAR DIET. CALL LIGHT WITHIN REACH. ALL NEEDS MET AT THIS TIME. WILL ENDORSE TO NEXT SHIFT FOR TIFFANIE. STILL AWAITING CASE MANAGEMENT AND IDALMIS PET TEAM. Addendum: 03/02/17 at 0936 by JAYDEN SANTA RN CORRECTION: "SHE IS NOT BEING TAKEN CARE OF" PATIENT IS VERY MANIPULATIVE. SHE WANTS TO HAVE EVERYTHING DONE HER OWN WAY AND IF NOT, SHE WILL GET VERY FRUSTRATED AND THINKS EVERYONE IS AGAINST HER. SHE EVEN ACCUSED NURSE "WHO ORDERED TO STOP ALL OF HER MEDICATIONS", EXPLAINED TO HER THAT ONLY DOCTORS COULD PUT AN ORDER TO STOP OR CONTINUE ALL OF HER MEDICATIONS.
[2017-03-01] MEDS: MAG HYDROX/AL HYDROX/SIMETH 30 ML UDC PO PRN (19:40)
--- NOTE | 2017-03-01 19:44 | NUR ---
RN NOTES IDALMIS OF PET TEAM SEEN PATIENT. PATIENT IS CALM WHEN TALKING TO IDALMIS, PATIENT IS WELL AWARE THAT SHE WILL BE DISCHARGED TOMORROW. WILL SENIOR DATA SCIENTIST PATIENT
[2017-03-01 20:09] VITALS: BP 103/71
--- NOTE | 2017-03-01 20:10 | NUR ---
RN NOTES CONFIRMED WITH SONDAVIE THAT PATIENT WILL BE DISCHARGED TO [facility] WITH 24 HOUR CARE. AWAITING CALL FROM DR. HAINES TO FINALIZED PSYCH MEDS FOR DISCHARGE.
--- NOTE | 2017-03-01 20:15 | NUR ---
RN NOTES RECEIVED INSTRUCTION FROM CONTINUITY TESTER TO TRANSFER PATIENT TO ROOM 309, NOTIFIED PATIENT OF ROOM CHANGE, WILL NOTIFY FAMILY WELL.
[2017-03-01] MEDS: QUETIAPINE FUMARATE 100 MG TABLET PO SCH (20:57)
[2017-03-01] MEDS: LORAZEPAM 0.5 MG TABLET PO PRN (20:57)
--- NOTE | 2017-03-01 21:15 | NUR ---
DR. HAINES WILL CALL BACK TOMORROW TO FINALIZE PSYCH MEDICATIONS FOR DISCHARGE
--- NOTE | 2017-03-01 21:30 | NUR ---
RN NOTES PATIENT TRANSFERRED TO ROOM 309-1 WITH SITTER, PATIENT IN GOOD AND STABLE CONDITION, NO SOB, ANXIOUS OF THE ROOM CHANGE. RECEIVED BY JEFRY HECK.
--- NOTE | 2017-03-02 06:00 | NUR ---
patient transferred from 2nd floor arrived on unit at 2215 accompanied by sitter and RN. pt oriented to unit and call light. orders for DC tomorrow pending medication sign off by psych. paged . Family notified of patients location. will endorse to oncoming RN.
--- NOTE | 2017-03-02 07:20 | NUR ---
MS RN Notes: Patient resting in bed. Patient alert orientedx3. No signs of distress noted. Patient noted with nonlabored breathing on room air. No signs of anxiety. Patient appears calm. Sitter at bedside. Bed in lowest locked position. Call light within reach. Will continue to monitor.
[2017-03-02 08:00] VITALS: BP 133/78
[2017-03-02] MEDS: PANTOPRAZOLE 40 MG TABLET.DR PO SCH (08:05)
[2017-03-02] MEDS: DOCUSATE SODIUM 100 MG CAPSULE PO SCH (08:06)
[2017-03-02] MEDS: QUETIAPINE FUMARATE 25 MG TABLET PO SCH (08:06)
[2017-03-02] MEDS: busPIRone 5 MG TABLET PO SCH (08:07)
[2017-03-02] MEDS: FOLIC ACID 1 MG TABLET PO SCH (08:07)
[2017-03-02] MEDS: VITAMIN B COMP W-C 1 TAB TABLET PO SCH (08:08)
[2017-03-02] MEDS: CHOLECALCIFEROL 1,000 UNIT TABLET (VIT D3) PO SCH (08:08)
[2017-03-02] MEDS: MULTIVITAMINS,THERAGRAN 1 UDTAB TABLET PO SCH (08:18)
[2017-03-02] MEDS: BOOST PLUS FOOD-CHOCLATE 237 ML BOX PO SCH (08:19)
--- NOTE | 2017-03-02 09:45 | NUR ---
MS RN CLOSING NOTES: PATIENT DISCHARGED TO [place], ASSISTED LIVING, PER DARIAN CORREA NP, ORDERS. SANJEEV CORREA,ORDERED TO CONTINUE PATIENT'S PSYCHIATRIC MEDICATIONS. SPOKE TO DR. HAINES WHO STATED THAT THE PATIENT IS CLEAR TO BE DISCHARGE, AND THAT HE HAS CLEARED IT WITH DR CORONEL. PATIENT STABLE.VITAL SIGNS WITHIN NORMAL RANGE. NONLABORED BREATHING ON ROOM AIR. PATIENT REFUSED TO HAVE PNEUMOCOOCAL VACCINE AND FLU VACCINE ADMINISTERED. AWARE AND VERBALIZES UNDERSTANDING OF HIS 'S NEED FOR 24 HOUR CONSTANT CARE. PATIENT AND EDUCATED ON EXISTCARE, AND MEDICATIONS. VALUABLES GIVEN TO PATIENT. SPOKE WITH ANY, CASE MANAGEMENT,WHO STATED THAT PATIENT IS ARRANGED TO GO TO [place]. PATIENT LEFT WITH AND FRIEND VIA PRIVATE CAR, ACCOMPANIED BY SOFTWARE APPLICATIONS DESIGNER TO HOSPITAL DOOR.
--- NOTE | 2017-03-02 09:46 | NUR ---
MS RN CLOSING NOTES: PATIENT DISCHARGED TO [place], ASSISTED LIVING, PER DARIAN CORREA NP, ORDERS. SANJEEV CORREA,ORDERED TO CONTINUE PATIENT'S PSYCHIATRIC MEDICATIONS. SPOKE TO DR. HAINES WHO STATED THAT THE PATIENT IS CLEAR TO BE DISCHARGE, AND THAT HE HAS CLEARED IT WITH DR CORONEL. PATIENT STABLE.VITAL SIGNS WITHIN NORMAL RANGE. NONLABORED BREATHING ON ROOM AIR. PATIENT REFUSED TO HAVE PNEUMOCOOCAL VACCINE AND FLU VACCINE ADMINISTERED. PATIENT HAD NO IV ACCESS. AWARE AND VERBALIZES UNDERSTANDING OF HIS 'S NEED FOR 24 HOUR CONSTANT CARE. PATIENT AND EDUCATED ON EXISTCARE, AND MEDICATIONS. VALUABLES GIVEN TO PATIENT. SPOKE WITH ANY, CASE MANAGEMENT,WHO STATED THAT PATIENT IS ARRANGED TO GO TO [place]. PATIENT LEFT WITH AND FRIEND VIA PRIVATE CAR, ACCOMPANIED BY CASH POSTING CLERK TO HOSPITAL DOOR.
== END 2017-03-02 09:45 | DRG 641 ==
LOC: MEDSG2 21:49 → MED 03-01 21:33
PROVIDERS: ADMIT Nurse Practitioner Acute Care; ATTEND Nurse Practitioner Acute Care
DX: E86.0 Dehydration (principal); F03.90 Unspecified dementia, unspecified severity, without behavioral disturbance, psychotic disturbance, mood disturbance, and anxiety; E44.1 Mild protein-calorie malnutrition; N39.0 Urinary tract infection, site not specified; I10 Essential (primary) hypertension; I25.10 Atherosclerotic heart disease of native coronary artery without angina pectoris; F32.9 Major depressive disorder, single episode, unspecified; F41.9 Anxiety disorder, unspecified; Z73.6 Limitation of activities due to disability; F29 Unspecified psychosis not due to a substance or known physiological condition; Z90.3 Acquired absence of stomach [part of]; R62.7 Adult failure to thrive
CPT/HCPCS: 36415; 80048-TC; 80053-TC; 81000-TC; 83735-TC; 84100-TC; 85025-TC; J0696; J3490; J7030; J7060